=== PATIENT | male | born 2005 | race Caucasian/White ===

== ENCOUNTER 2023-08-08 19:56 | Emergency (ER) | payer BC, SELFPAY ==
[2023-08-08 19:59] VITALS: BP 143/104
[2023-08-08] MEDS: TYLENOL 1000 MG PO (20:05)
[2023-08-08 20:27] LABS: COVID-19 Antigen Negative (Negative)
[2023-08-08 23:22] VITALS: BMI 23.8
[2023-08-08 23:23] VITALS: BP 129/69
--- NOTE | 2023-08-08 23:46 | ED.GENMED ---
History of Present Illness
General
Chief Complaint: Fever
Source: patient
Exam Limitations: none
Time Seen by Provider: 08/08/23 23:27
Travel History
Have you had any contact with someone who has COVID-19?: No
Do you have any symptoms of coronavirus? Fever > 100 degrees, chills, cough, shortness of breath, sore throat, loss of taste or smell, muscle aches, or headache?: No
History of Present Illness
History of Present Illness:
This is a 17 year old male that comes in with c/o fever. States that he started last night with a low grade fever of 99 at 10:30pm. States that he took some NyQuil. Then at 3am his temp went up to 101.5. States that he just uses a fan and a wet
cloth. Today he has a fever of 103. States that his brother is a PA and felt that he should come to the ER. States that he had some chills, felt a little SOB going up the steps and he vomited once yesterday. States that he also had diarrhea and a
headache. Denies any chest pain, abd pain, nasuea, dizziness, urinary burning.
Past History
Past History
ED Past Medical History: Other (Strep throat, Tonsilitis)
ED Past Surgical History: Orthopedic (Left foot surgery)
Social History
Tobacco: Other (Former vaping, )
Alcohol: Occasional
Personal: Single
Living: with roommate (School at [employer])
Review of Systems
Review of Systems
All Other Systems: ROS reviewed and negative except as documented in HPI and ROS
Constitutional: Reports fever and chills
EENT: Reports sore throat (only when he coughs)
Respiratory: Reports cough
Cardiac: Reports no symptoms; Denies chest pain
ABD/GI: Reports vomiting (Once yesterday) and diarrhea; Denies abdominal pain or nausea
: Reports no symptoms; Denies dysuria, frequency or urgency
Musculoskeletal: Reports no symptoms
Skin: Reports no symptoms
Neurological: Reports headache; Denies dizzy
Psychiatric: Reports no symptoms
Phy Exam
General Physical Exam
General Presentation: well appearing and no apparent distress
General age: appears stated age
General Skin: warm and dry
General Habitus: normal
General Mental: alert
General Hydration: appears well hydrated
ENT Exam
ENT Exam: TM's normal, pharynx normal and neck supple
Eye Exam
Eye Exam: EOMI
Cardiovascular Exam
Cardiovascular Exam: regular rate/rhythm, no edema, no murmur and normal peripheral pulses
Pulmonary Exam
Pulmonary Exam: lungs clear, no respiratory distress, no rales, chest non tender, no crackles, no rhonchi, no wheezing and no cough
Gastrointestinal Exam
Gastrointestinal Exam: normal bowel sounds, non tender, soft, no organomegaly, no pulsatile mass and non distended
Musculoskeletal Exam
Musculoskeletal Exam: full ROM and no edema
Skin Exam
Skin Exam: normal color, warm/dry, no rash and no petechia
Psychiatric Exam
Psychiatric Exam: normal mood/affect
Course
Orders/Labs/Results
Orders:
Orders
08/08/23 20:04
Acetaminophen [Tylenol] 1,000 mg .ROUTE .STK-MED ONE
08/08/23 20:05
Acetaminophen [Tylenol] 1,000 mg PO NOW STA
08/08/23 20:06
COVID-19 Antigen Urgent
Source: Nasal Swab
Influenza A+B Rapid Molecular Urgent
SUMAN Source: Nasal Swab
Specimen Description:
Negative for COVID, Positive for Influenza A
Vital Signs
Initial and Last Documented VS:
Initial Vital Signs
Temp Pulse Resp BP Pulse Ox
102.2 F H 122 22 143/104 96
08/08/23 19:59 08/08/23 19:59 08/08/23 19:59 08/08/23 19:59 08/08/23 19:59
Last Documented Vital Signs
Temp Pulse Resp BP Pulse Ox
99.6 F 102 18 129/69 94
08/08/23 23:23 08/08/23 23:23 08/08/23 23:23 08/08/23 23:23 08/08/23 23:45
MDM/Problems Addressed
Differential Diagnosis Includes:
COVID, INfluenza,
MDM/Problems Addressed:
This is a 17 year old male that comes in with c/o fever. States that he started last night with a low grade fever. Then today he was 103. States that he vomited once yesterday and had diarrhea. States that he also has a headache.
Will test for COVID and Influenza.
Explained to patient that he has influenza A. Patient to use Tylenol and Ibuprofen for fever and body aches. Patient to increase his water intake to 8-8oz glasses daily. Follow up with the family doctor as needed. Return with any concerns.
Chronic conditions affecting care:
NA
Acute Exacerbation and/or Progression of Chronic Illness:
NA
*Pulse Oximetry
Patient hypoxic: no
*EKG
Interpreted by ED Provider?: NA
Rate: EKG- N/A
*Pastry Sous Chef Interpretation
Rate: Pastry Sous Chef- N/A
*Critical Care Note
Total Time (30-74mins, 75-104mins- exclusive of procedures): Not Applicable
ED Attending Note
-
Portions of this chart may have been created with voice recognition software.� Occasional wrong word or��sound alike� substitutions may have occurred due to the inherent limitations of voice recognition software.
Discharge Plan
Departure
Patient Disposition: Home (Routine Discharge)
Date of Disposition: 08/08/23
Time of Disposition: 23:54
Patient with high blood pressure during this ER visit?: No
Condition: Good
Covid-19: Not Applicable
Discharge Problem:
Influenza A
Instructions: Flu, Adult (DC)
Prescriptions:
No Action
Zyrtec 10 mg Tablet,Disintegrating
10 mg PO DAILY
Stand Alone Forms: Back to School
Activity Restrictions/Additional Instructions:
As discussed, you are negative for COVID but are positive for Influenza A. This is a virus and will just need to run its course. Please increase your water intake to 8-8oz glasses daily. You may use Tylenol and Ibuprofen for fever and body aches.
Follow up with the family doctor as needed. IF YOU HAVE ANY OTHER CONCERNS PLEASE RETURN TO THE EMERGENCY ROOM
Interventions
Interventions:
*Risk Screen - Suicide Last Done: 08/08/23 19:59
*General Assessment Last Done: 08/08/23 23:29
*Neglect/Abuse Screening Last Done: 08/08/23 19:59
ED- Fall Risk Assessment Last Done: 08/08/23 23:30
*ED COVID-19 Vaccine History Last Done: 08/08/23 23:29
ED- Neurological Assessment Last Done: 08/08/23 23:30
ED-Skin Assessment Last Done: 08/08/23 23:30
[2023-08-09] VITALS: BP 119/64
== END 2023-08-09 00:10 | disposition home or self-care (01) ==
LOC: EMR 19:56
PROVIDERS: Nurse Practitioner; EMERGENCY PHYSICIAN Emergency Medicine
DX: J10.1 Influenza due to other identified influenza virus with other respiratory manifestations (principal)
CPT/HCPCS: 99283; 87502; 87811

== ENCOUNTER → 2023-09-26 15:33 | Outpatient (REF) | payer BC, SELFPAY | LOC: RAD 15:33 | PROVIDERS: ATTENDING PHYSICIAN Nurse Practitioner Family | DX: S99.911A Unspecified injury of right ankle, initial encounter (principal) | CPT/HCPCS: 73610 ==